=== PATIENT | female | born 1990 | race Caucasian/White ===

== ENCOUNTER 2022-03-15 21:59 | Emergency (ER) | payer OTHER ==
[~2022-03-15] VITALS: Ht 170.2 cm; Wt 65.8 kg
--- NOTE | 2022-03-15 23:23 | NUR ---
BIBSELF C/O RASH X 1 WEEK STARTED BLE NOW RAD TO UPPER BODY, A/O X 4, RESPIRATORY EVEN AND UNLABORED. AMBULATORY. DENIES PAIN, N/V. AWAITING TO BE SEEN BY .
[2022-03-15 23:29] VITALS: BP 130/70
[2022-03-15] MEDS ORDERED: HYDR28.32 TP (23:48)
[2022-03-15] MEDS ORDERED: HYDROCORTISONE 1% CREAM 28.35 GM TUBE TP ONE (23:53)
[2022-03-16] MEDS ORDERED: HYDROCORTISONE 1% CREAM 30 GM TUBE TP ONE
[2022-03-16] MEDS ORDERED: TRIA80CR2 TP (00:12)
== END 2022-03-16 00:06 | disposition home or self-care (01) ==
LOC: ER 22:05
DX: L30.9 Dermatitis, unspecified (principal); R21 Rash and other nonspecific skin eruption; E11.9 Type 2 diabetes mellitus without complications; Z60.2 Problems related to living alone